=== PATIENT | female | born 1945 | race Caucasian/White ===

== ENCOUNTER 2024-05-23 23:43 | Emergency (ER) | payer OTHER ==
[~2024-05-23] VITALS: Ht 172.7 cm; Wt 70.0 kg
--- NOTE | 2024-05-24 00:05 | ED.PDOC ---
Musculoskeletal HPI Comments 78-year-old female brought in by EMS presents with a chief complaint of left upper arm pain and deformity s/p fall. Patient had a mechanical fall at home and landed on her left side. Patient has an obvious deformity to her left upper arm. Patient has history of fractures. Patient was given 100mcg of Fentanyl and 8mg of Zofran by EMS. Patient denies any head trauma or blood loss. Chief Complaint: Upper Extremity Time Seen by MD: 23:54 Reviewed Notes: Nurses Notes, Medications, Allergies Allergies: Coded Allergies: Penicillins (Verified Allergy, Unknown, 05/24/24) Information Source: Patient, Emergency Med Personnel Mode of Arrival: EMS Location: Left Extremity Location: Arm Timing: Minutes Prehospital treatment: Pain Meds (100mcg Fentanyl ), Treatment (8mg Zofran) Severity: Moderate Able to Move Extremity: No Bear Weight: No Pain: Moderate Hand Dominance: Right Mechanism: Blunt Trauma Circumstances: Fall Onset of Symptoms: After Trauma Symptoms: Pain DVT Risk Factors: NONE Past Medical History PAST MEDICAL HISTORY: Denies Surgical History: Denies all surgeries [employer] History: Denies all [employer] Hx Family History Family History: Reviewed,noncontributory to illness Social History Smoker: Non-Smoker Alcohol: Denies ETOH Use Drugs: Denies Drug Use Lives In: Home Constitutional: denies: chills, diaphoresis, fatigue, fever, malaise, sweats, weakness, others EENTM: denies: blurred vision, double vision, ear bleeding, ear discharge, ear drainage, ear pain, ear ringing, eye pain, eye redness, hearing loss, mouth pain, mouth swelling, nasal discharge, nose bleeding, nose congestion, nose pain, photophobia, tearing, throat pain, throat swelling, voice changes, others Respiratory: denies: cough, hemoptysis, orthopnea, SOB at rest, shortness of breath, SOB with excertion, stridor, wheezing, others Cardiovascular: denies: chest pain, dizzy spells, diaphoresis, Dyspnea on exertion, edema, irregular heart beat, left arm pain, lightheadedness, palpitations, PND, syncope, others Gastrointestinal: denies: abdomen distended, abdominal pain, blood streaked bowels, constipated, diarrhea, dysphagia, difficulty swallowing, hematemesis, melena, nausea, poor appetite, poor fluid intake, rectal bleeding, rectal pain, vomiting, others Genitourinary: denies: abnormal vagina bleeding, burning, dyspareunia, dysuria, flank pain, frequency, hematuria, incontinence, pain, , vagina discharge, urgency, others Neurological: denies: dizziness, fainting, headache, left sided numbness, left sided weakness, numbness, paresthesia, pre-existing deficit, right sided numbness, right sided weakness, seizure, speech problems, tingling, tremors, weakness, others Musculoskeletal: reports: others (Left upper arm pain and deformity); denies: back pain, gout, joint pain, joint swelling, muscle pain, muscle stiffness, neck pain Integumetry: denies: bruises, change in color, change in hair/nails, dryness, laceration, lesions, lumps, rash, wounds, others Allergic/Immunocompromised: denies: Difficulty Healing, Frequent Infections, Hives, Itching, others Hematologic/Lymphatic: denies: anemia, blood clots, easy bleeding, easy bru ising, swollen glands, others Endocrine: denies: excessive hunger, excessive sweating, excessive thirst, e xcessive urination, flushing, intolerance to cold, intolerance to heat, unexplained weight gain, unexplained weight loss, others Psychiatric: denies: anxiety, bipolar disorder, depression, hopeless, panic disorder, schizophrenia, sleepless, suicidal, others All Other Systems: Reviewed and Negative Physical Exam General Appearance: Moderate Distress (Palo-[id number] distress due to left upper arm pain concerns.), Normal HEENT: Normal ENT Inspection, Pharynx Normal, TMs Normal Neck: Full Range of Motion, Non-Tender, Normal, Normal Inspection Respiratory: Chest Non-Tender, Lungs Clear, No Accessory Muscle Use, No Respi ratory Distress, Normal Breath Sounds Cardiovascular: No Edema, No JVD, No Murmur, No Gallop, Normal Peripheral Pulses, Regular Rate/Rhythm Breast Exam: Deferred Gastrointestinal: No Organomegaly, Non Tender, No Pulsatile Mass, Normal Bowel Sounds, Soft Genitalia: Deferred Pelvic: Deferred Rectal: Deferred Extremities: Other (Diffuse left humeral tenderness throughout with noted deformity. Patient appears to have a mid shaft fracture. Distal neurovascularly intact. Cap refill less than 3 seconds.) Musculoskeletal : Apperance: Normal Neurologic: Alert, No Motor Deficits, Normal Affect, Normal Mood, No Sensory Deficits Cerebellar Function: Normal Reflexes: Normal Skin: Dry, Normal Color, Warm Lymphatic: No Adenopathy Was a procedure done? Was a procedure done?: No Differential Diagnosis EXT Differential Diagnosis: Fracture, Sprain, Dislocation, Contusion, Strain X-Ray, Labs, Meds, VS Vital Signs Date Time Temp Pulse Resp B/P (MAP) Pulse Ox O2 Delivery O2 Flow Rate FiO2 05/24/24 00:20 97.8 75 13 120/53 (75) 94 97.8 05/24/24 00:20 75 13 94 Room Air* 0 21 05/23/24 23:43 98.3 67 18 107/55 (72) 95 98.3 X-Ray, Labs, Meds, VS Comment All studies performed the ED were evaluated by me personally. Imaging studies of the clavicle were unremarkable for any acute fractures. Humeral study confirmed a mid shaft diaphysis fracture that is mildly displaced. Patient will be provided with a sugar-tong splint and sling. Patient has been advised to follow up with the primary care provider in the next few days for re-evaluation or, contact this facility and speak to the orthopedic department run by Dr. aCsas four advisement on evaluation and cast placement. Time of 1ST Reevaluation: Reevaluation 1ST: Improved Consultation: PCP, Other (Orthopedist) Patient Education/Counseling: Diagnosis, Treatment, Prognosis Family Education/Counseling: Diagnosis, Treatment, No Family Present Departure 1 Departure Time of Disposition: :18 Impression: Primary Impression: Humeral shaft fracture Disposition: HOME / SELF CARE / HOMELESS Condition: Stable Additional Instructions: Patient has been advised to utilize pain medication as needed and additionally, follow up with primary care provider in the next few days for re-evaluation. Additionally, patient should contact this facility in two days at [phone] and asked for the orthopedic department run by Dr. Casas. Patient should be evaluated by an orthopedist for unlikely surgical intervention, but evaluation by an orthopedist should be ascertained. e-Prescriptions Ibuprofen Micronized (Ibuprofen) 800 Mg Tab 800 MG PO Q8HP PRN, #20 TAB Prov: DELMI SAUCEDA PAC 05/24/24 Hydrocodone-Acetaminophen (Hydrocodone Bitartrate/AC 10-325 mg) 1 Tab Tab 1 TAB PO Q8HP PRN, #20 TAB Prov: DELMI SAUCEDA PAC 05/24/24 Discharged With: Self, Spouse Critical Care Note Critical Care Time?: No Stability Stability form required: No Heart Score Heart Score: Heart Score Response (Comments) Value History N/A 0 EKG N/A 0 Age N/A 0 Risk Factors N/A 0 Troponin N/A 0 Total 0 I personally scribed for DELMI SAUCEDA PAC ([email or web address]) on 05/24/24 at 00:05. Electronically submitted by Dhaval Souza ([email or web address]). DELMI SAUCEDA PAC May 24, 2024 00:05
[2024-05-24 00:20] VITALS: PULSE 75; RESP 13; TEMP 97.8; O2SAT 94
--- NOTE | 2024-05-24 00:56 | DVH ---
XY L CLAVICLE COMPLETE XRAY, HISTORY: Fall/trauma TECHNICAL DATA: Views of the left clavicle and shoulder COMPARISON: None Findings/ IMPRESSION: Displaced fracture of the proximal humeral diaphysis
--- NOTE | 2024-05-24 00:56 | DVH ---
XY L CLAVICLE COMPLETE XRAY, HISTORY: Fall/trauma TECHNICAL DATA: Views of the left clavicle and shoulder COMPARISON: None Findings/ IMPRESSION: Displaced fracture of the proximal humeral diaphysis
[2024-05-24] MEDS ORDERED: HYDR-4798 PO (01:22)
[2024-05-24] MEDS ORDERED: IBUP-1455 PO (01:22)
[2024-05-24 01:35] VITALS: O2SAT 98
[2024-05-24] MEDS: HYDROmorphone HCL 2 MG/ML VL/or syr IM ONE (01:38)
[2024-05-24 02:08] VITALS: BP 106/50; PULSE 70; RESP 18
[2024-05-24] MEDS: ONDANSETRON HCL 4 MG/2 ML VIAL IV ONE (03:00)
== END 2024-05-24 03:04 | disposition home or self-care (01) ==
LOC: ER 23:43 → EDBD 23:43 → ER 05-24 03:04
DX: S42.392A Other fracture of shaft of left humerus, initial encounter for closed fracture (principal); Z88.0 Allergy status to penicillin; W18.39XA Other fall on same level, initial encounter; Y93.89 Activity, other specified; Y92.89 Other specified places as the place of occurrence of the external cause; Y99.8 Other external cause status
CPT/HCPCS: 29105; 73000; 73060; 96372; 96374; 99284; J1171; J2405